=== PATIENT | female | born 1970 | race Caucasian/White ===

== ENCOUNTER → 2018-04-30 | Outpatient (CLI) | payer BC ==
[~2018-04-30] MED LIST: AMPH20TA2 PO; BUPR100T8 PO
[2018-04-30 15:04] LABS: BASO % 0.3 %; BASO ABS # 0.03 K/uL (0-0.2); EOS % 1.1 %; HEMATOCRIT 37.4 % (37-47); HEMOGLOBIN 12.9 g/dL (12.0-16.0); IG# 0.02 K/uL (0.00-0.02); LYMPH ABS # 1.66 K/uL (1.2-3.4); MEAN CORPUSCULAR HEMOGLOBIN 32.4 pg (25-34); MEAN CORPUSCULAR HGB CONC 34.5 g/dl (32-36); MEAN PLATELET VOLUME 10.8 fL (7.4-10.4); MONO % 9.3 %; MONO ABS # 0.81 K/uL (0.11-0.59); NEUT % 70.1 %; NEUT ABS # 6.11 K/uL (1.4-6.5); PLATELET COUNT 179 K/uL (130-400); RED CELL DISTRIBUTION WIDTH CV 12.7 % (11.5-14.5); RED CELL DISTRIBUTION WIDTH SD 43.9 fL (36.4-46.3); WHITE BLOOD COUNT 8.73 K/uL (4.8-10.8)
== END | disposition home or self-care (01) ==
LOC: C.LAB 14:30
PROVIDERS: ATTEND Obstetrics & Gynecology Obstetrics
DX: Z01.818 Encounter for other preprocedural examination (principal)

== ENCOUNTER 2018-11-04 17:27 | Inpatient (IN) ==
[2018-11-04] MEDS ORDERED: CEFAZOLIN 2,000 MG/15 ML IV PUSH IV ONE (17:42)
[2018-11-04] MEDS ORDERED: MIDAZOLAM HCL 1 MG/ML 2ML VIAL ONE (17:50)
[2018-11-04] MEDS ORDERED: ROCURONIUM BROMIDE 10 MG/ML 5 ML VIAL ONE (17:50)
[2018-11-04] MEDS ORDERED: LIDOCAINE HCL 2% 2 ML VIAL/AMP(20MG/ML) INFIL ONE (17:50)
[2018-11-04] MEDS ORDERED: PROPOFOL IV EMULSION 10 MG/ML 20 ML VIAL IV ONE (17:50)
[2018-11-04] MEDS ORDERED: DEXAMETHASONE SOD INJ 4 MG/ML VIAL ONE (17:50)
[2018-11-04] MEDS ORDERED: fentaNYL citrate 100 MCG/2 ML VIAL ONE (17:50)
[2018-11-04] MEDS ORDERED: LARYING-O-JET KIT (LTA) ONE (17:50)
[2018-11-04] MEDS ORDERED: GLYCOPYRROLATE 0.2 MG/ML VIAL ONE (17:50)
[2018-11-04] MEDS ORDERED: ONDANSETRON INJ 2 MG/ML 2 ML VIAL ONE (17:50)
[2018-11-04] MEDS ORDERED: ePHEDrine sulfate 50 MG/ML AMP ONE (17:50)
[2018-11-04] MEDS ORDERED: KETOROLAC 30 MG/ML VIAL ONE (17:50)
[2018-11-04] MEDS ORDERED: NEOSTIGMINE METHYLSULFATE 5 MG/5 ML SYR ONE (17:50)
[2018-11-04] MEDS ORDERED: ePHEDrine sulfate 50 MG/ML AMP IV PRN (17:58)
[2018-11-04] MEDS ORDERED: ONDANSETRON INJ 2 MG/ML 2 ML VIAL IV PRN ×2 (17:58→21:04)
[2018-11-04] MEDS ORDERED: HYDROmorphone INJ 1 MG/ML SYRINGE IV PRN (17:58)
[2018-11-04] MEDS ORDERED: ATROPINE SULFATE 0.1 MG/ML 10ML SYR IV PRN (17:58)
[2018-11-04] MEDS ORDERED: PHENYLEPHRINE 100MCG/ML 5ML SYR IV PRN (17:58)
[2018-11-04] MEDS ORDERED: fentaNYL citrate 100 MCG/2 ML VIAL IV PRN (17:58)
[2018-11-04] MEDS ORDERED: PROMETHAZINE HCL 12.5 MG in SODIUM CHLORIDE 0.9% 50 ML IV PRN (17:58)
--- NOTE | 2018-11-04 18:04 | Anesthesiology Consultation ---
Date of Service November 04, 2018 Assessment & Plan Chart Review Chart Review: Acceptable Risk for Surgery and Patient NOT seen in Pre Admission Testing Consults Requested none ASA ASA2E Proposed Anesthesia Anesthesia Type: General Risk / Benefits Reviewed With: PT / POA / Parent / Guardian, Accepts Plan and Informed Consent Obtained NPO Date Last Intake of Fluids: 11/04/18 Time Last Intake of Fluids: 12:30 Date Last Intake of Solids: 11/04/18 Time Last Intake of Solids: 12:30 Last Intake of Solids Comment: Yogurt, cheese, banana History Surgery Operation Date: 11/04/18 11:45 Proposed Procedures p Operative Laparoscopy, - Barb Ibarra s Closure of Vaginal Cuff - Barb V. Stacey Height/Weight Height: 1.63 m Weight: 63 kg Allergies Allergy/AdvReac Type Severity Reaction Status Date / Time No Known Allergies Allergy Verified 11/04/18 17:42 Medications Home Medications Medication Instructions Recorded Confirmed Last Taken bupropion HCl [Wellbutrin SR] 100 mg PO BID 08/04/18 11/04/18 11/04/18 13:00 dextroamphetamine-amphetamine 20 mg PO DAILY 08/04/18 11/04/18 11/04/18 06:30 [Adderall] ibuprofen 600 mg PO Q6H PRN 11/04/18 11/04/18 11/02/18 Past Medical History Medical History Attention deficit disorder (ADD) Depression Hemangioma History of anesthesia reaction HYPOTENSIVE Denies any recent CP, SOB, GERD symptoms, n/v. Had a 24hr GI bug over the weekend that has resolved. Past Surgical History Surgical History History of elbow surgery (Acute) History of bilateral tubal ligation History of craniotomy 2013, [facility] History of dilatation and curettage History of tonsillectomy Past Anesthesia History No Hx of Anesthesia Complications and No Family Hx of Anesthesia Complications History of PONV Yes (Had a scopolamine patch that was helpful last surgery in 07/27) Motion Sickness Screening History of Motion Sickness: Yes Social History Smoking Status: Never smoker Do You Dip or Chew Tobacco: No Hx Alcohol Use: Yes Alcohol type: beer and wine alcohol intake frequency: a few times a week Hx Substance Use: No substance use type: does not use Exercise / Class Metabolic Activity II 4-5 Yardwork/Stairs/Walk up hill Physical Exam ENMT Mouth: no TMJ abnormality and no TMJ clicking Thyromental Distance: > or= 3.5 Finger Breadths Mallampati Class: I Neck normal visual inspection; neck extension not limited Respiratory Auscultation: lungs clear to auscultation bilaterally Cardiovascular Rate/Rhythm: regular rate and regular rhythm Psychiatric Orientation: alert and oriented x 3
--- NOTE | 2018-11-04 18:04 | History & Physical Report ---
Date of Service November 04, 2018 Assessment & Plan (1) Vaginal cuff dehiscence: Plan for surgical management via Exam under anesthesia, vaginal cuff repair, operative laparoscopy, possible left oophorectomy, possible bowel resection and reanastomosis. Present on Admission?: Yes History of Present Illness Chief Complaint: 48 yo s/p TLH/BS/Cystoscopy on 08/08/18 presented to Intensive Care Nurse clinic with vaginal bleeding and pain. Patient had sexual intercourse on and reported resistance followed by a pop sound. Patient reports vaginal bleeding and severe pain after the pop sound. Vaginal bleeding resolved but severe pain persists. Patient reports N/V and diarrhea the day after vaginal bleeding and pain. On sterile speculum exam, Patient noted to have a knuckle of tissue protruding through the left apex of the vaginal cuff ( approximately 1 cm). Interoffice TVUS revealed bowel at the vaginal cuff and an edematous left ovary. Patient referred to [facility] OR for surgical management with concern for vaginal cuff dehiscence with possible bowel protrusion. Primary Care Provider: Genia Duenas Allergies Allergy/AdvReac Type Severity Reaction Status Date / Time No Known Allergies Allergy Verified 11/04/18 17:42 Home Medications Home Medications Medication Instructions Recorded Confirmed Type bupropion HCl [Wellbutrin SR] 100 mg PO QAM 08/04/18 08/08/18 History dextroamphetamine-amphetamine 20 mg PO BID 08/04/18 08/08/18 History [Adderall] ibuprofen 600 mg PO Q6H PRN 11/04/18 11/04/18 History Past Med/Surg History Medical History Attention deficit disorder (ADD) Depression Hemangioma History of anesthesia reaction HYPOTENSIVE Surgical History History of elbow surgery (Acute) History of bilateral tubal ligation History of craniotomy 2013, [facility] FOR HEMANGIOMA History of dilatation and curettage History of tonsillectomy Social History Current Living Situation: Family Feels Safe at Home: Yes Smoking Status: Never smoker Do You Dip or Chew Tobacco: No Hx Alcohol Use: Yes Alcohol type: beer and wine Alcohol Intake Frequency: a few times a week Hx Substance Use: No Beliefs That Will Affect Care: None Visual Impairment: No Limitations Review of Systems Constitutional: as per Subjective / HPI Gastrointestinal: + abdominal pain Vaginal pain Physical Exam 2 Constitutional: WD/WN, vitals as above Respiratory: normal respiratory effort, lungs clear to auscultation Cardiovascular: RRR, no murmur, no edema Gastrointestinal (Abdomen): Percussion/Palpation: + abdomen tender Genitourinary: Speculum/Bimanual Exam: + vaginal tenderness and + vaginal bleeding
[2018-11-04] MEDS ORDERED: BUPIVACAINE 0.5 % 5 MG/1 ML MPF 30ML VIAL ONE (18:05)
[2018-11-04 18:15] LABS: Basophils # (auto) 0.02 K/uL (0-0.2); Basophils % (auto) 0.4 %; Eosinophils # (auto) 0.09 K/uL (0-0.5); Eosinophils % (auto) 1.6 %; Hematocrit (blood only) 36.9 % (37-47); Hemoglobin 12.7 g/dL (12.0-16.0); Immature Granulocytes # (auto) 0.01 K/uL (0.00-0.02); Immature Granulocytes % (auto) 0.2 %; Lymphocytes % (auto) 24.8 %; Mean Platelet Volume 10.9 fL (7.4-10.4); Monocytes # (auto) 0.52 K/uL (0.11-0.59); Monocytes % (auto) 9.2 %; Neutrophils # (auto) 3.61 K/uL (1.4-6.5); Neutrophils % (auto) 63.8 %; Platelet Count 206 K/uL (130-400); RDW Coefficient of Variation 13.1 % (11.5-14.5); RDW Standard Deviation 44.1 fL (36.4-46.3); Red Blood Count 4.01 M/uL (4.2-5.4); White Blood Count 5.65 K/uL (4.8-10.8)
[2018-11-04 18:18] LABS: Mean Corpuscular Hgb Conc 34.4 g/dL (32-36)
[2018-11-04] MEDS ORDERED: SCOPOLAMINE 1.5 MG TDSY ONE (18:22)
[2018-11-04] MEDS ORDERED: SCOPOLAMINE 1.5 MG TDSY TD ONE (18:27)
--- NOTE | 2018-11-04 18:38 | Progress Note ---
Date of Service November 04, 2018 Subjective Pt is a 48 yo female who presents with vaginal cuff injury with concern for bowel herniation. Plan for combination emergent case with Gynecology for diagnostic laparoscopy, possible ex lap, possible bowel resection, possible ostomy. Consent obtained. Full consult note to follow. Physical Exam 2 Vital Signs (Past 24 Hours): Last Vital Signs Temp 37.0 C 11/04/18 17:53 Pulse 74 11/04/18 17:53 Resp 18 11/04/18 17:53 BP 118/75 11/04/18 17:53 Pulse Ox 99 11/04/18 17:53
--- NOTE | 2018-11-04 18:49 | Surgery Consultation ---
Date of Consultation November 04, 2018 Assessment & Plan (1) Vaginal cuff dehiscence: Pt is a 48 yo female who presents with vaginal cuff injury with concern for bowel herniation. Plan for combination emergent case with Gynecology for diagnostic laparoscopy, possible ex lap, possible bowel resection, possible ostomy. Consent obtained. Risks, benefits, and alternatives discussed. Risks include but are not limited to injury to bowel, hernia, pain, scarring, bleeding, need for additional procedures, breathing problems, heart attack, stroke, and . All questions were answered to apparent patient satisfaction and patient freely signed consent. Present on Admission?: Yes History of Present Illness Reason for Consultation: Bowel herniation through vaginal dehiscence Attending Physician: Barb Ibarra History of Present Illness Patient is a 48 yo female who is s/p July 2018 hysterectomy and bilateral salpingectomy who presented to Dr. Ibarra's clinic today with vaginal bleeding. She reports after intercourse on 10/31/18 there was a "pop." On vaginal examination it was reported a knuckle of tissue with a blue hue was seen protruding through an approximately 1cm defect in the vaginal cuff. U/S was completed at [facility] which showed bowel adjacent to the vaginal cuff. She was transferred to [facility] at patient preference for further management and surgical exploration. General Surgery has been consulted to assist with the operation due to concerns for bowel involvement. The patient reports lower abdominal pain. Denies nausea and vomiting. No other abdominal surgery besides that listed above. Denies chest pain and dyspnea. Allergies Allergy/AdvReac Type Severity Reaction Status Date / Time No Known Allergies Allergy Verified 11/04/18 17:42 Home Medications Home Medications Medication Instructions Recorded Confirmed Type bupropion HCl [Wellbutrin SR] 100 mg PO BID 08/04/18 11/04/18 History dextroamphetamine-amphetamine 20 mg PO DAILY 08/04/18 11/04/18 History [Adderall] acetaminophen 650 mg PO Q6H #120 cap 11/04/18 Rx docusate sodium [Colace] 100 mg PO BID #30 cap 11/04/18 Rx ibuprofen 600 mg PO Q6H #60 tab 11/04/18 Rx ibuprofen 600 mg PO Q6H PRN 11/04/18 11/04/18 History oxycodone-acetaminophen [Percocet] 1 tab PO Q6H PRN #14 tab 11/04/18 Rx simethicone 80 mg PO Q6H #60 tab 11/04/18 Rx Patient History Medical History Attention deficit disorder (ADD) Depression Hemangioma History of anesthesia reaction HYPOTENSIVE Surgical History History of elbow surgery (Acute) History of bilateral tubal ligation History of craniotomy 2014, [facility] FOR [facility] History of dilatation and curettage History of tonsillectomy Social History Current Living Situation: Spouse Feels Safe at Home: Yes Safety Concerns: Feels Safe At This Time Smoking Status: Never smoker Do You Dip or Chew Tobacco: No Hx Alcohol Use: Yes Alcohol type: beer and wine Alcohol Intake Frequency: a few times a week Hx Substance Use: No Beliefs That Will Affect Care: None Preferred Language: Urdu Communication Ability: Effective Networks Computer Consultant Required: No Review of Systems Constitutional: no fever and no chills Respiratory: no cough and no dyspnea Cardiovascular: no chest pain Gastrointestinal: + abdominal pain; no nausea and no vomiting Genitourinary (Female): no dysuria and no urinary frequency vaginal bleeding Physical Exam 2 Vital Signs (Past 24 Hours): Last Vital Signs Temp 37.0 C 11/04/18 17:53 Pulse 74 11/04/18 17:53 Resp 18 11/04/18 17:53 BP 118/75 11/04/18 17:53 Pulse Ox 99 11/04/18 17:53 Constitutional: well nourished and + acute distress Eyes: PERRL, conjunctivae normal, anicteric sclerae ENMT: external ear and nose normal, oropharynx normal Respiratory: normal respiratory effort Cardiovascular: Rate/Rhythm: regular rate and regular rhythm Gastrointestinal (Abdomen): soft, nondistended, mild lower abdominal tenderness, no rebound or guarding. Results & Data Laboratory Results WBC 5.65, Hgb 12.7, Plt 206 Diagnostic Findings U/S per verbal report showed bowel near vaginal cuff adjacent to area of defect.
[2018-11-04 18:58] LABS: BUN Creatinine Ratio 22.3 (10-20); Creatinine Clr Calc Pharmacy 85.5 ml/min; Est GFR (African American) 118.4; Est GFR (Non-African American) 102.1; Potassium 3.7 mmol/L (3.5-5.1)
--- NOTE | 2018-11-04 20:55 | Post Operative Brief Note ---
Immediate Post Op Note v1 Date of Surgery November 04, 2018 Pre & Post Diagnosis Operation Date: 11/04/18 11:45 Pre-Op Diagnosis: Vaginal Cuff Dehiscence Post-Op Diagnosis: Vaginal Cuff Dehiscence, pelvic adhesion, phlegmon Procedure Operation Date: 11/04/18 11:45 Actual Procedures p Diagnostic Laparoscopy, lysis of adhesions(Not Applicable) - Lyedi Goodson s Repair of Vaginal Cuff - Barb Ibarra Surgeon Leydi Shea MD Architectural Draftsperson Barb Ibarra MD, Nash Stringer MD Estimated Blood Loss 10 Findings Consistent with Post-Op Diagnosis Drains Connolly Catheter
--- NOTE | 2018-11-04 20:58 | Post Operative Brief Note ---
Immediate Post Op Note v1 Date of Surgery November 04, 2018 Pre & Post Diagnosis Operation Date: 11/04/18 11:45 Pre-Op Diagnosis: Vaginal Cuff Dehiscence Post-Op Diagnosis: Vaginal Cuff Dehiscence Procedure Operation Date: 11/04/18 11:45 Actual Procedures p Diagnostic Laparoscopy, lysis of adhesions(Not Applicable) - Barb Ibarra s Repair of Vaginal Cuff - Barb Ibarra Surgeon Barb Ibarra Recreation Program Coordinator Dr. Nash Stringer, Kaelyn Navarro PARupal Estimated Blood Loss 10 Findings Consistent with Post-Op Diagnosis Drains Connolly Catheter
--- NOTE | 2018-11-04 21:00 | Operative Report ---
Post Operative Report Pre & Post Diagnosis Operation Date: 11/04/18 11:45 Pre-Op Diagnosis: Vaginal Cuff Dehiscence Post-Op Diagnosis: Vaginal Cuff Dehiscence, pelvic adhesions, phlegmon Procedure Operation Date: 11/04/18 11:45 Actual Procedures p Diagnostic Laparoscopy, lysis of adhesions(Not Applicable) - Leydi Goodson s Repair of Vaginal Cuff - Barb Ibarra Surgeon Leydi Shea MD Apple Thinner Barb Ibarra MD, Nash Stringer MD Estimated Blood Loss 10 Findings See Below Specimens None Description of Procedure The patient was taken to the operating room and placed in the lithotomy position. Perioperative antibiotics were administered and SCDs were on and working. General anesthesia was induced. A timeout was held confirming the correct patient, procedure, and necessary equipment. The patient was prepped and draped in the usual sterile fashion. After entering the abdomen below the umbilicus two additional 5 mm ports were placed, one on either side of the abdomen lateral and inferior to the umbilicus. The pelvis was inspected, and there was dehiscence of the vaginal cuff. Surrounding tissue and fat was edematous and friable. There was an inflammatory rind. There were a couple of areas of omentum and fat that were adhered to the vaginal cuff. There were loops of small bowel that were loosely adhered to the inflamed tissue and were easily swept away. The tip of the appendix was adhered to the right lower abdominal wall. The adhesions were carefully dissected free using blunt dissection and the harmonic. The abdomen was irrigated. One suture from the vaginal cuff was adherent to the pericolonic fat and was excised with endoscopic scissors. The bowel was inspected and there were no injuries. The bowel was kept safe and retracted out of the pelvis while Gynecology repaired the vaginal cuff. The abdomen was inspected. Ports were removed under direct visualization. Instrument and sponge counts were reported as correct. There were no specimens. The subcutaneous tissue was closed with 4-0 Monocryl and Dermabond was applied to the incisions. The patient was extubated and transferred to the recovery area in stable condition. I attest to the content of the Intraoperative Record and any orders documented therein. Any exceptions are noted below.
[2018-11-04] MEDS ORDERED: OXYCODONE/ACETAMINOPHEN 5mg/325mg TAB PO PRN (21:04)
--- NOTE | 2018-11-04 21:25 | Operative Report ---
Post Operative Report Pre & Post Diagnosis Operation Date: 11/04/18 11:45 Pre-Op Diagnosis: Vaginal Cuff Dehiscence Post-Op Diagnosis: Vaginal Cuff Dehiscence Procedure Operation Date: 11/04/18 11:45 Actual Procedures p Diagnostic Laparoscopy, lysis of adhesions(Not Applicable) - Barb macdonald Repair of Vaginal Cuff - Barb Ibarra Surgeon Barb Ibarra Lining Scrubber Nash Stringer MD, Kaelyn Navarro PA-C Estimated Blood Loss 10 Findings See Below 1. On vaginal exam, 1 cm tissue mucosa protruding through the apex of the left vaginal cuff 2. On laparoscopy, omentum and small bowel adhered to the vaginal cuff 3. Removal of omentum and small bowel from the vaginal cuff lead to the vaginal cuff opening with ease. 4. Vaginal cuff edematous with rine from suspected abscess/inflammation/ infection 5. Normal appearing ovaries bilaterally 6. Edematous but not appearing appendix 7. Normal appearing liver edge Fluids See Anesthesia Report Specimens None Drains Rangel catheter (removed prior to the end of the procedure) Anesthesia Type General Complications none Indications 48 yo with vaginal bleeding and pain after intercourse on 10/31/18. s/p TLH/BS/ and cystoscopy on 08/08/18. Patient appreciated a pop sound during intercourse. Patient presented to [facility] clinic and on SSE was noted to have omental/bowel protruding through the vaginal cuff. Interoffice ultrasound confirmed bowel at the vaginal cuff. Patient was consented for surgical management. Description of Procedure Under GA in the dorsal lithotomy position, the patient was prepped and drapped in the usual sterile fashion. Beginning at the vagina, a rangel catheter was inserted under sterile conditions and left in situ for the remainder of the case. A weighted speculum was then placed in the vagina and with the help of a right angle retractor the cervix the suspected bowel/omental was appreciated at the apex of the left vaginal cuff. The weighted speculum was then removed. Attention was then turned to the abdomen. 0.5% marcaine solution was used for infiltration of all port sites. Beginning in the subumbilical area, the skin was first infiltrated with ~ 2 cc of the marcaine solution, then a 5 mm incision was made through the skin with a #11 blade. Direct entry with the 5 mm trocar, sleeve, and laparoscope was made directly into the peritoneal cavity. The opening pressure was < 8 mmHg. The peritoneal cavity was insufflated with CO2 gas to a maximum pressure of 20 mmHg. Examination of the peritoneal cavity revealed no signs of injury from entry and normal anatomical structures. Normal appearing liver edge. The patient was then placed in Trendelenburg and two more 5 mm trocars were placed, one on the left and one on the right, in the standard technique, taking care to avoid the epigastric vessels. All trocars were placed under direct visualization with no inadvertent damage to underlying structures. The bowel and omentum was noted to be adhered to the vaginal cuff and the right and left adnexal regions. General Surgery was consulted prior to the start of the case and performed meticulous dissection to free the bowel and omentum from the vaginal cuff and pelvic sidewalls. From the dissection, both ovaries were visualized and within normal limits. The appendix was adhered to the vaginal cuff and mobilized. The appendix appeared edematous but within normal limits. Please see General Surgery operative note for a detailed description of the procedure. After lysis of adhesions and mobilizing the bowel and omentum from the vaginal cuff, the posterior cul-de-sac was visualized. Attention was then returned to the vagina and the vaginal cuff was closed with 0 PDS in an interrupted fashion. During vaginal cuff closure, General surgery maintained laparoscopic visualization of the bowel and ensured no incorporation of bowel or omentum into the vaginal cuff. After closure of the vaginal cuff, palpation of the cuff revealed an air tight seal. All vaginal instrumentations were removed. Attention was then returned to laparoscopy and the pelvis was copiously irrigated and suctioned. An inspection of the pelvic cavity revealed the bowel and omentum were mobilized and hemostasis was noted. The trocars were removed under laparoscopic visualization. All the incision sites were then closed with 4 -0 monocryl sutures in a subcuticular fashion and dermabond. At the end of the procedure, all sponges, instruments, and sharps were counted and correct. Estimated blood loss was 10 ml. The patient was taken to recovery in stable condition. I attest to the content of the Intraoperative Record and any orders documented therein. Any exceptions are noted below.
--- NOTE | 2018-11-04 21:51 | Anesthesiology Progress Note ---
Date of Service November 04, 2018 Anesthesia Post Procedure Vital Signs Vital Signs: Temp Pulse Pulse Resp BP Pulse Ox 11/04/18 21:45 36.4 C L 75 16 107/61 98 11/04/18 21:35 66 16 107/65 98 11/04/18 21:25 64 16 110/65 100 11/04/18 21:15 76 16 110/60 100 11/04/18 21:08 36.3 C L 77 12 104/56 L 100 11/04/18 17:53 37.0 C 74 18 118/75 99 Pain Intensity Abdomen: Pain Intensity: 2 Notes Mental Status: alert / awake / arousable Patient Amnestic to Procedure: Yes Nausea / Vomiting: adequately controlled Pain: adequately controlled Airway Patency, RR, SpO2: stable & adequate BP & HR: stable & adequate Hydration State: stable & adequate Anesthetic Complications: no major complications apparent
[2018-11-04] MEDS: ACETAMINOPHEN 325 MG TAB PO SCH (22:15)
[2018-11-04] MEDS: SIMETHICONE 80 MG CHEW PO SCH (23:44)
[2018-11-04] MEDS: IBUPROFEN 600 MG TAB PO SCH (23:44)
[2018-11-04] MEDS: CHECK SCOPOLAMINE PATCH PLACEMENT SCH (23:50)
[2018-11-05] MEDS: LACTATED RINGER'S 1,000 ML IV SCH ×2 (01:21→09:41)
[2018-11-05] MEDS: ACETAMINOPHEN 325 MG TAB PO SCH ×2 (04:00→08:44)
[2018-11-05] MEDS ORDERED: CEFAZOLIN 2000MG 2,000 MG/15 ML SYR IV SCH (06:00)
[2018-11-05] MEDS: IBUPROFEN 600 MG TAB PO SCH (06:00)
[2018-11-05] MEDS: SIMETHICONE 80 MG CHEW PO SCH (06:00)
--- NOTE | 2018-11-05 07:39 | Anesthesiology Progress Note ---
Date of Service November 05, 2018 Anesthesia Post Procedure Vital Signs Vital Signs: Temp Pulse Pulse Pulse Resp BP Pulse Ox 11/05/18 07:18 37.0 C 76 16 98/59 L 97 11/05/18 04:00 37.0 C 81 18 91/55 L 95 11/05/18 00:51 37.0 C 80 18 105/71 94 11/04/18 23:51 36.6 C 78 18 94/60 L 97 11/04/18 22:51 36.5 C 63 19 100/68 99 11/04/18 22:21 36.5 C 67 20 99/62 L 100 11/04/18 22:00 36.5 C 81 14 104/66 98 11/04/18 21:45 36.4 C L 75 16 107/61 98 11/04/18 21:35 66 16 107/65 98 11/04/18 21:25 64 16 110/65 100 11/04/18 21:15 76 16 110/60 100 11/04/18 21:08 36.3 C L 77 12 104/56 L 100 11/04/18 17:53 37.0 C 74 18 118/75 99 Pain Intensity Abdomen: Pain Intensity: 2 Lower Pelvic: Pain Intensity: 7 Notes Mental Status: alert / awake / arousable and participated in evaluation Patient Amnestic to Procedure: Yes Nausea / Vomiting: adequately controlled Pain: adequately controlled Airway Patency, RR, SpO2: stable & adequate BP & HR: stable & adequate Hydration State: stable & adequate Anesthetic Complications: no major complications apparent and Pt Satisfied with anesthetic care
[2018-11-05 08:17] LABS: Hematocrit (blood only) 34.2 % (37-47); Hemoglobin 11.4 g/dL (12.0-16.0); Immature Granulocytes # (auto) 0.02 K/uL (0.00-0.02); Immature Granulocytes % (auto) 0.2 %; Lymphocytes # (auto) 0.95 K/uL (1.2-3.4); Lymphocytes % (auto) 11.5 %; Mean Corpuscular Hgb Conc 33.3 g/dL (32-36); Mean Corpuscular Volume 93.4 fL (80-100); Mean Platelet Volume 10.9 fL (7.4-10.4); Monocytes # (auto) 0.57 K/uL (0.11-0.59); Monocytes % (auto) 6.9 %; Neutrophils # (auto) 6.71 K/uL (1.4-6.5); Neutrophils % (auto) 81.4 %; Platelet Count 178 K/uL (130-400); RDW Standard Deviation 44.7 fL (36.4-46.3); Red Blood Count 3.66 M/uL (4.2-5.4); White Blood Count 8.25 K/uL (4.8-10.8)
[2018-11-05] MEDS: CHECK SCOPOLAMINE PATCH PLACEMENT SCH (08:41)
[2018-11-05] MEDS ORDERED: AMPHETAMINE ASP/SULF/DEXTRAMPH 10 MG TAB PO SCH (09:00)
[2018-11-05] MEDS ORDERED: cephALEXin 500 MG CAP PO SCH (09:00)
[2018-11-05] MEDS ORDERED: metroNIDAZOLE 500 MG TAB PO SCH (09:00)
[2018-11-05] MEDS ORDERED: BuPROPion SR 100 MG TABCR PO SCH (09:00)
[2018-11-05] MEDS ORDERED: DOCUSATE SODIUM 100 MG CAP PO SCH (09:00)
[2018-11-05 09:03] LABS: Albumin Globulin Ratio 0.9 (0.9-2); BUN Creatinine Ratio 14.6 (10-20); Bilirubin,Total 0.4 mg/dl (0.2-1); Calcium 8.4 mg/dl (8.5-10.1); Creatinine Clr Calc Pharmacy 84.3 ml/min; Est GFR (African American) 116.4; Est GFR (Non-African American) 100.4; Globulin 3.3 gm/dl (2.5-4.0); Potassium 4.1 mmol/L (3.5-5.1); Total Protein 6.3 gm/dl (6.4-8.2)
--- NOTE | 2018-11-05 10:41 | Gynecologic Progress Note ---
Date of Service November 05, 2018 Assessment & Plan (1) Vaginal cuff dehiscence: s/p EUA, Diagnostic laparoscopy, lysis of adhesions, and vaginal cuff repair. POD#1. Patient doing well. Meeting discharge criteria. Discharge home with instructions and medications. Present on Admission?: Yes Subjective POD #1. s/p EUA, Diagnostic laparoscopy, Lysis of adhesions, Vaginal cuff repair. Patient with no complaints overnight. Abdominal pain resolved. Tolerating regular diet. No urinary symptoms. Denies flatus. Denies vaginal bleeding. Constitutional: as per Subjective / HPI Physical Exam Vital Signs (Past 24 Hours): Last Vital Signs Temp 37.0 C 11/05/18 07:18 Pulse 76 11/05/18 07:18 Resp 16 11/05/18 07:18 BP 98/59 L 11/05/18 07:18 Pulse Ox 97 11/05/18 07:18 Constitutional: WD/WN, vitals as above Respiratory: normal respiratory effort, lungs clear to auscultation Cardiovascular: RRR, no murmur, no edema Gastrointestinal (Abdomen): normal bowel sounds, soft, nontender, no hepatosplenomegaly (1) Vaginal cuff dehiscence Encounter type: initial encounter Qualified Code(s): T81.31XA - Disruption of external operation (surgical) wound, not elsewhere classified, initial encounter
--- NOTE | 2018-11-05 10:42 | Surgery Progress Note ---
Date of Service November 05, 2018 Assessment & Plan (1) Vaginal cuff dehiscence: POD # 1 s/p diagnostic laparoscopy with repair of vaginal cuff dehiscence - vitals stable, afebrile - minimal post op pain - tolerating regular diet Plan: Okay from surgical standpoint for discharge today continue current pain management as needed OOB to chair and ambulate Continue current management by primary service Dr. Stringer has seen patient and agrees with above. Subjective feeling better mild soreness at incision sites no nausea or vomiting tolerated regular diet last night wants to go home Physical Exam Vital Signs (Past 24 Hours): Last Vital Signs Temp 37.0 C 11/05/18 07:18 Pulse 76 11/05/18 07:18 Resp 16 11/05/18 07:18 BP 98/59 L 11/05/18 07:18 Pulse Ox 97 11/05/18 07:18 Constitutional: WD/WN, vitals as above no acute distress and not ill appearing Respiratory: no respiratory distress Skin: no rashes, warm and dry Psychiatric: A+Ox3, euthymic affect Results & Data Laboratory Results 11/05/18 11/05/18 11/04/18 Range/Units 07:32 07:32 18:35 WBC 8.25 (4.8-10.8) K/uL RBC 3.66 L (4.2-5.4) M/uL Hgb 11.4 L (12.0-16.0) g/dL Hct 34.2 L (37-47) % MCV 93.4 (80-100) fL MCH 31.1 (25-34) pg MCHC 33.3 (32-36) g/dL RDW Std Deviation 44.7 (36.4-46.3) fL RDW Coeff of Idris 13.0 (11.5-14.5) % Plt Count 178 (130-400) K/uL MPV 10.9 H (7.4-10.4) fL Immature Gran % (Auto) 0.2 % Neut % (Auto) 81.4 % Lymph % (Auto) 11.5 % Traill % (Auto) 6.9 % Eos % (Auto) 0.0 % Baso % (Auto) 0.0 % Immature Gran # (Auto) 0.02 (0.00-0.02) K/uL Neut # (Auto) 6.71 H (1.4-6.5) K/uL Lymph # (Auto) 0.95 L (1.2-3.4) K/uL Traill # (Auto) 0.57 (0.11-0.59) K/uL Eos # (Auto) 0.00 (0-0.5) K/uL Baso # (Auto) 0.00 (0-0.2) K/uL Sodium Pending 137 Potassium Pending 3.7 Chloride Pending 105 Carbon Dioxide Pending 28 Anion Gap Pending 4.0 BUN Pending 16 Creatinine Pending 0.71 Est Cr Clr Drug Dosing Pending 85.5 Est GFR ( Amer) Pending 118.4 Est GFR (Non-Af Amer) Pending 102.1 BUN/Creatinine Ratio Pending 22.3 H Glucose Pending 84 Calcium Pending 9.0 Total Bilirubin Pending AST Pending ALT Pending Alkaline Phosphatase Pending Total Protein Pending Albumin Pending Globulin Pending Albumin/Globulin Ratio Pending 11/04/18 11/04/18 Range/Units 18:02 18:02 WBC 5.65 (4.8-10.8) K/uL RBC 4.01 L (4.2-5.4) M/uL Hgb 12.7 (12.0-16.0) g/dL Hct 36.9 L (37-47) % MCV 92.0 (80-100) fL MCH 31.7 (25-34) pg MCHC 34.4 (32-36) g/dL RDW Std Deviation 44.1 (36.4-46.3) fL RDW Coeff of Idris 13.1 (11.5-14.5) % Plt Count 206 (130-400) K/uL MPV 10.9 H (7.4-10.4) fL Immature Gran % (Auto) 0.2 % Neut % (Auto) 63.8 % Lymph % (Auto) 24.8 % Traill % (Auto) 9.2 % Eos % (Auto) 1.6 % Baso % (Auto) 0.4 % Immature Gran # (Auto) 0.01 (0.00-0.02) K/uL Neut # (Auto) 3.61 (1.4-6.5) K/uL Lymph # (Auto) 1.40 (1.2-3.4) K/uL Traill # (Auto) 0.52 (0.11-0.59) K/uL Eos # (Auto) 0.09 (0-0.5) K/uL Baso # (Auto) 0.02 (0-0.2) K/uL Sodium Cancelled Potassium Cancelled Chloride Cancelled Carbon Dioxide Cancelled Anion Gap Cancelled BUN Cancelled Creatinine Cancelled Est Cr Clr Drug Dosing Cancelled Est GFR ( Amer) Cancelled Est GFR (Non-Af Amer) Cancelled BUN/Creatinine Ratio Cancelled Glucose Cancelled Calcium Cancelled Total Bilirubin AST ALT Alkaline Phosphatase Total Protein Albumin Globulin Albumin/Globulin Ratio (1) Vaginal cuff dehiscence Encounter type: initial encounter Qualified Code(s): T81.31XA - Disruption of external operation (surgical) wound, not elsewhere classified, initial encounter
--- NOTE | 2018-11-07 06:53 | Discharge Summary ---
Date of Service November 07, 2018 Admission Exam (Per Admitting) Constitutional WD/WN, vitals as above Respiratory normal respiratory effort, lungs clear to auscultation Cardiovascular RRR, no murmur, no edema Gastrointestinal (Abdomen) normal bowel sounds, soft, nontender, no hepatosplenomegaly Percussion/Palpation: + abdomen tender Discharge Data Procedures Performed Operation Date: 11/04/18 11:45 Actual Procedures p Diagnostic Laparoscopy, lysis of adhesions(Not Applicable) - Barb small Repair of Vaginal Cuff [facility] ([facility]) Vaginal cuff dehiscence: s/p EUA, Diagnostic laparoscopy, lysis of adhesions, and vaginal cuff repair. POD#1. Patient doing well. Meeting discharge criteria. Discharge home with instructions and medications. Discharge Instructions POST OPERATIVE: BOWEL FUNCTION/MEDICATIONS: 1. Constipation pain and discomfort are the most common complaints 5-7 days after surgery. Points 2-6 address the things that can help. 2. Chewing gum can help stimulate the gut and help improve digestion and motility. 3. Milk of Magnesia 1-2 times per day until return of bowel function. 4. Colace is a stool softener that helps. Taking this 2-3 times per day until bowel function returns to normal is highly recommended. 5. Dulcolax is a laxative that may be used if several days have passed without a bowel movement. Alternatively Miralax may be used daily instead. 6. Drink plenty of fluids as this will also reduce constipation. 7. Narcotic pain medications will be prescribed by your physician. They are safe to use and we encourage you to use them. If you are not allergic, ibuprofen will also be prescribed. Many patients will be able to transition off of the narcotic medications to ibuprofen by postoperative day 3. ACTIVITY RECOMMENDATIONS: 1. Get plenty of rest and listen to your body. If you are tired, take a nap. 2. You may shower, but do not take a tub bath until you see your doctor at the 2 week post operative visit. 3. Absolutely NO intercourse and nothing in the vagina until you are examined by your doctor at the 6 week visit. At that visit it will be determined when such activities can be resumed. This can range from 6-12 weeks after your hernandez rgery depending on healing time. 4. The main physical activity in the first week should be walking. By the second week you can slowly increase activity. There are no limits on walking up and down stairs. 5. Do not lift more than 5-10 lbs for 4 weeks. Remember the "one-handed rule", i.e. if you can lift something with only one hand it's likely okay. 6. 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 "Overdoing it" can lead to incisions not healing, pain and vaginal bleeding, so again, listen to your body. 7. Driving can be resumed when you feel able. Do not drive within 24 hours of taking a narcotic medication. EXPECTATIONS: 1. Vaginal spotting, bleeding and discharge are common after surgery. There may even be an odor to the discharge which is often related to sutures used in the vagina. If you experience heavy vaginal bleeding, call the office number day or night [phone]. 2. Bladder discomfort is common after surgery from the catheter. This usually resolves in 1-2 weeks. 3. By the end of the 3rd or 4th week you should be feeling much better. It may take up to 6 weeks for your energy levels to return to normal. 4. Narcotic medications have side effects such as: dizziness, headache, nausea and/or vomiting. If you suspect your pain medication is causing problems, call our office and we may be able to prescribe an alternate medication. 5. The skin incisions are often covered with a liquid bandage. This will gradually peel off over time. CALL THE OFFICE IF YOU HAVE ANY OF THE FOLLOWIN. Temperature of 101 degrees or higher. 2. Severe abdominal or pelvic pain not relieved by pain medication. 3. Persistent nausea or vomiting. 4. Increased pain with urination or difficulty urinating. 5. Bright red bleeding that soaks more than 1 pad per hour. CONTACT PHONE NUMBERS: Main Office: [phone] Avoid all tobacco products. If you need help to stop smoking, call [place]'s FREE QUITLINE at . This is a free call.
== END 2018-11-05 09:41 | disposition home or self-care (01) | DRG 909 ==
LOC: ASU 17:27 → 3W 17:43